=== PATIENT | male | born 1935 | race Caucasian/White ===

== ENCOUNTER 2016-05-31 08:46 | Day surgery (SDC) | payer MEDICARE, OTHER ==
[~2016-05-31 08:46] MED LIST: DIPRIVAN 200 MG/20 ML IV ONE; Ketamine HCl 50 MG/ML IV ONE
--- NOTE | 2016-05-31 09:20 | HP ---
PROCEDURE DATE: 05/31/16 HISTORY OF PRESENT ILLNESS: The patient is an 80 y/o with no prior colonoscopy. Family history negative for colon cancer. His father with myocardial infarction. He has lost some weight. He denies any visible bloody stools. He said he had some heme-occult positive stool apparently. He had been on Plavix. There was question if he had a stroke in the past. No abdominal pain. Some backaches. History of kidney stone in the past. Currently denies any abdominal pain. PAST MEDICAL HISTORY: Has had some heart disease, kidney stones, and hypertension. CURRENT MEDICATIONS: Includes Zetia, ciprofloxacin, tamsulosin, valsartan, and aspirin. ALLERGIES: NKDA. PAST SURGICAL HISTORY: Had 2 coronary stents. He had a pacemaker. Had kidney stone surgery in the past. FAMILY HISTORY: Negative with regards to this problem. SOCIAL HISTORY: No smoking or alcohol abuse. REVIEW OF SYSTEMS: 10 systems reviewed per admission assessment. No chest pain or palpitations. Other systems negative or noncontributory other than above and preadmission questionnaire. He did have history of urinary tract infection which is why he is on the ciprofloxacin. PHYSICAL EXAMINATION: GENERAL: No acute distress. HEENT: Sclerae nonicteric. NECK: No JVD. CHEST: Equal excursion. Nonlabored breathing. CVS: Regular rate and rhythm. ABDOMEN: Soft, nontender, nondistended. No peritoneal signs. EXTREMITIES: No significant edema. NEURO: A&O, moving extremities symmetrically. No gross motor deficits noted. IMPRESSION: 1. HEME-OCCULT POSITIVE. NO ABDOMINAL PAIN. NO VISIBLE BLOOD. FELT HE WOULD BENEFIT FROM UPPER AND LOWER ENDOSCOPY FOR FURTHER EVALUATION. Risks and benefits explained in detail, but not limited to, bleeding; infection; risk of bowel injury or perforation possibly requiring open procedure; small risk of missed or nondiagnosis or incomplete exam possibly requiring barium enema or other studies or procedures; general risks of anesthesia or sedation, but not limited to. He understands and agrees to the planned procedure. Will proceed with EGD/colonoscopy as an outpatient.
[2016-05-31] MEDS ORDERED: Lactated Ringers 1,000 ML IV ONE (09:23)
[2016-05-31] MEDS ORDERED: Lactated Ringers 1,000 ML IV SCH (09:30)
[2016-05-31 12:36] VITALS: PULSE 60
--- NOTE | 2016-05-31 12:37 | OP ---
SURGERY DATE: 05/31/16 SURGERY TIME: 1020 PREOPERATIVE DIAGNOSIS: 1. HISTORY OF HEME-OCCULT POSITIVE. RULE OUT UPPER OR LOWER GASTROINTESTINAL SOURCE. POSTOPERATIVE DIAGNOSIS: 1. EROSIVE GASTRITIS. 2. SMALL HAITAL HERNIA. 3. VERY TORTUOUS COLON. 4. DIVERTICULOSIS. 5. SMALL RAISED LESION VS EARLY POLYPS TRANSVERSE COLON, SIGMOID COLON, AND RECTOSIGMOID COLON. 6. SMALL INTERNAL/EXTERNAL HEMORRHOIDS. PROCEDURE: 1. EGD with cold biopsy of antrum to evaluation for Helicobacter pylori. 2. Colonoscopy to questionable ascending colon through the transverse colon and then question to distal ascending colon with hot biopsy small raised lesion vs early polyps transverse colon, sigmoid, and rectum. SURGEON: Dr. Ramsey Castellanos. ANESTHESIA: MAC. ESTIMATED BLOOD LOSS: Minimal. INDICATIONS: As noted above. Risks and benefits explained in detail, but not limited to. Consent was obtained. DESCRIPTION OF PROCEDURE AND FINDINGS: The patient was taken to the OR. MAC anesthesia was introduced. After official time-out, no disagreement in planned procedure. Bite block positioned. Video gastroscope easily passed down the esophagus through the patent pylorus to the junction of the 2nd and 3rd portion of the duodenum. On withdrawal of the scope, the duodenum and the duodenal bulb grossly unremarkable. He did have in the prepyloric area signs of erosive gastritis. This could have been the result of his heme-occult positive stool. There is nothing large enough to call an ulcer at this time, but he has had erosive gastritis. [place], on retroflex, he had small hiatal hernia, about a cm extra around the scope. The scope was straightened. There were no signs of any large polyps, masses, or obstructing lesions in the stomach. The scope pulled back. Gastroesophageal junction noted to be about 37-38 cm. Z line was crisp. The remainder of esophagus was grossly unremarkable. Scope was withdrawn. Patient tolerated this procedure well. Attention was then turned to the colonoscopy. Digital rectal exam did not reveal any rectal masses. Video colonoscope inserted and passed up through the very tortuous sigmoid and descending. With external pressure, was able to be passed what seems to be through what appeared to be the transverse colon. However, this looped all the way around towards the pelvis area. [place] it may have just reached the distal ascending colon, though the scope would not safely advance any further because of looping. It could not be reduced with multiple people with external pressure on the abdomen and positioning on his back. Therefore, it was not safe to try any further. Scope was slowly carefully withdrawn. In the transverse colon, small raised area vs early polyp or hyperplastic lesion removed with the brief bursts of cautery and the hot biopsy forceps. The scope then pulled back to the sigmoid colon were about 4 or 5 small raised lesions vs hyperplastic lesions vs early polyps were removed with hot biopsy forceps and brief bursts of cautery elevating it well away from the bowel wall. The scope pulled back to the rectosigmoid. Another very small early raised lesions was removed with hot biopsy forceps and brief bursts of cautery. Good hemostasis was noted. Otherwise, he was noted to have diverticulosis. He did have some poor prep in the left colon with some liquidy stool that did limit the exam. This was suction irrigated as well as possible. It did limit the exam. Otherwise, he had some small internal/external hemorrhoids. There were no signs of any large polyps, masses, or obstructing lesions, but given the very tortuous scope, it was unable to be passed safely all the way around to the visible cecum. Therefore, it was felt it would be safest to order an outpatient barium enema for further evaluation. The family was not available immediately finishing the case. Will see if the family is available to discuss the findings with. Otherwise, will see him back after we get the barium enema results.
[2016-05-31 12:38] VITALS: BP 155/90; O2SAT 96
== END 2016-05-31 12:30 | disposition home or self-care (01) ==
LOC: SDC 08:46
PROVIDERS: ATTEND Surgery
PROC: 0DB68ZX Excision of Stomach, Via Natural or Artificial Opening Endoscopic, Diagnostic (ICD-10-PCS; principal; 2016-05-31)
PROC: 0DBK8ZX Excision of Ascending Colon, Via Natural or Artificial Opening Endoscopic, Diagnostic (ICD-10-PCS; 2016-05-31)
PROC: 0DBP8ZX Excision of Rectum, Via Natural or Artificial Opening Endoscopic, Diagnostic (ICD-10-PCS; 2016-05-31)
PROC: 0DBN8ZX Excision of Sigmoid Colon, Via Natural or Artificial Opening Endoscopic, Diagnostic (ICD-10-PCS; 2016-05-31)
PROC: 0DBL8ZX Excision of Transverse Colon, Via Natural or Artificial Opening Endoscopic, Diagnostic (ICD-10-PCS; 2016-05-31)
DX: K29.00 Acute gastritis without bleeding (principal); K44.9 Diaphragmatic hernia without obstruction or gangrene; K57.92 Diverticulitis of intestine, part unspecified, without perforation or abscess without bleeding; K63.9 Disease of intestine, unspecified; K62.1 Rectal polyp; D12.2 Benign neoplasm of ascending colon; D12.3 Benign neoplasm of transverse colon; D12.5 Benign neoplasm of sigmoid colon; K64.4 Residual hemorrhoidal skin tags; K64.8 Other hemorrhoids; N39.0 Urinary tract infection, site not specified; Z80.0 Family history of malignant neoplasm of digestive organs; R19.5 Other fecal abnormalities; I10 Essential (primary) hypertension; Z87.442 Personal history of urinary calculi; I51.9 Heart disease, unspecified; Z79.899 Other long term (current) drug therapy; Z95.0 Presence of cardiac pacemaker
CPT/HCPCS: 00740; 00810; 36415; 88305; J2704

== ENCOUNTER 2016-06-01 16:42 | Inpatient (IN) | payer MEDICARE ==
[2016-06-01 17:15] LABS: BASOPHIL % 0.1 % (0.0-0.4); Eosinophil % 1.7 % (0.00-5.0); Granulocytes % 74.2 % (36.0-66.0); Lymphocytes % 15.2 % (24.0-44.0); Mean Cell Volume 86.4 fl (78-100); Mean Corpuscular Hemoglobin 29.1 pg (26-32); Mean Platelet Volume 11.1 fl (6-9.5); Monocytes % 8.8 % (0.0-12.0); Platelet Count 184 K/mm3 (150-450); Red Blood Count 4.91 M/mm3 (4.1-5.6); Red Cell Distribution Width 16.8 % (11.5-14.0); White Blood Count 8.2 K/mm3 (4.0-10.5)
[2016-06-01 17:33] LABS: INR 1.11 (0.8-3.0); PROTIME 12.4 SECONDS (8.83-12.87)
[2016-06-01 17:35] LABS: PTT 30.6 SECONDS (24.1-36.1)
--- NOTE | 2016-06-01 17:35 | ERPHSYRPT ---
- History of Present Illness Time Seen by Provider: 06/01/16 16:53 Source: patient, family () Patient Subjective Stated Complaint: states patient woke up at 10 today with garbled speech. denies any other deficits at this time. hx tia. denies any pain. had been off blood thinner for seven days due to colonscopy yesterday per dr. escobar. Triage Nursing Assessment: ambulated to room per self. no weakness in extremites noted. speech is garbled, unable to pronounce words. oriented to place and time and person. Physician History: CC: speech problems Hx: 80 y/o patient of Dr Connolly and Amy. He had colonscopy yesterday. He went home and was doing well. reports he went to bed at 10PM yesterday. He slept until 10AM today when she woke him up. He had trouble speaking when he awoke today at 10AM. No focal weakness. Ate and drank fine. Still trouble speaking so came to ER. He is supposed to be on blood thinners which were stopped due to procedure yesterday. No fall or injury. He has hx of heart disease. No RIOS. Not confused. Time of Onset/Last Time Seen Normal: last seen normal at 10 PM yesterday Severity: moderate Baseline/Normal Cognition: alert oriented x 3 Current Cognition: alert oriented x 3 Associated Symptoms: No loss of consciousness Allergies/Adverse Reactions: No Known Drug Allergies Allergy (Unverified 08/02/15 10:53) Home Medications: Aspirin 162.5 mg PO HS 08/02/15 [History] Clopidogrel Bisulfate 75 mg [PLAVIX 75 MG Tablet] 75 mg PO DAILY 08/02/15 [History] Ezetimibe 10 mg [Zetia 10 MG] 10 mg PO HS 08/02/15 [History] Valsartan/Hydrochlorothiazide [Valsartan-Hctz 160-12.5 mg Tab] 1 tablet PO DAILY 08/02/15 [History] Tamsulosin HCl 0.4 mg [Flomax 0.4 MG] 0.4 mg PO DAILY 05/31/16 [History] Hx Tetanus, Diphtheria Vaccination/Date Given: No Hx Influenza Vaccination/Date Given: Yes Hx Pneumococcal Vaccination/Date Given: Yes - Review of Systems Constitutional: No Fever, No Chills Eyes: No Symptoms Ears, Nose, & Throat: No Symptoms Respiratory: No Cough, No Dyspnea Cardiac: No Chest Pain, No Syncope Abdominal/Gastrointestinal: No Abdominal Pain, No Nausea, No Vomiting Musculoskeletal: No Back Pain, No Neck Pain, No Fall, No Injury Skin: No Rash Neurological: Speech Changes, No Dizziness, No Focal Weakness, No Headache, No Parasthesia, No Seizure All Other Systems: Reviewed and Negative - Past Medical History Pertinent Past Medical History: Yes Neurological History: TIA ENT History: No Pertinent History Cardiac History: Arrhythmia, Coronary Artery Disease, High Cholesterol, Hypertension Respiratory History: No Pertinent History Endocrine Medical History: No Pertinent History Musculoskeletal History: No Pertinent History GI Medical History: Hernia, Other History: Other Psycho-Social History: No Pertinent History Male Reproductive Disorders: Prostate Problems Other Medical History: blood in stool. hx kidney stone and uti - Past Surgical History Past Surgical History: Yes Neuro Surgical History: No Pertinent History Cardiac: Cardiac Stent, Pacemaker Respiratory: No Pertinent History Gastrointestinal: No Pertinent History Genitourinary: Other Musculoskeletal: No Pertinent History Male Surgical History: No Pertinent History Other Surgical History: KIDNEY STONES - Social History Smoking Status: Never smoker Exposure to second hand smoke: No Drug Use: none Patient Lives Alone: No - Nursing Vital Signs Nursing Vital Signs: Initial Vital Signs Temperature 98.6 F Temperature Source Oral Pulse Rate 68 Respiratory Rate 16 Blood Pressure [Left Arm] 160/72 Pain Intensity 0 - [place] Coma Scale Best Eye Response ([place]): (4) open spontaneously Best Verbal Response ([place]): (5) oriented Best Motor Response ([place]): (6) obeys commands [place] Total: 15 - Physical Exam General Appearance: alert Eye Exam: bilateral eye: PERRL, EOMI Ears, Nose, Throat Exam: moist mucous membranes Neck Exam: normal inspection, non-tender, supple Respiratory: normal breath sounds, lungs clear Cardiovascular: regular rate/rhythm Gastrointestinal: soft, No tenderness, No distention Back Exam: normal inspection Extremity Exam: normal inspection, normal range of motion Mental Status: alert, oriented x 3, 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 He understands speech and follows commands. - Course Nursing assessment & vital signs reviewed: Yes EKG Interpreted by Me: RATE (50 pacemaker) - Radiology Exams cxr X-ray Interpretation: Reviewed by me, Negative - CT Exams head CT Interpretation: Tele-radiologist Report (acute frontal nonhemorrhaogic stroke ) Ordered Tests: Active Orders 24 hr Category Date Time Status Service Order Taker STAT Care 06/01/16 17:01 Active Clean Catch Urine Specimen STAT Care 06/01/16 17:01 Active EKG-ER Only STAT Care 06/01/16 17:01 Active IV Insertion STAT Care 06/01/16 17:01 Active NPO (ED) STAT Care 06/01/16 17:01 Active Pulse Oximetry (ED) STAT Care 06/01/16 17:01 Active Consult Neurology ROUTINE Cons 06/01/16 17:54 Active CHEST 1 VIEW (PORTABLE) Stat Exams 06/01/16 17:02 Taken HEAD WITHOUT CONTRAST [CT] Stat Exams 06/01/16 17:02 Taken CBC W DIFF Stat Lab 06/01/16 17:10 Completed CMP Stat Lab 06/01/16 17:10 Completed PROTIME WITH INR Stat Lab 06/01/16 17:10 Completed PTT Stat Lab 06/01/16 17:10 Completed UA Stat Lab 06/01/16 18:00 Received Lab/Rad Data: Laboratory Result Diagrams 06/01/16 17:10 06/01/16 17:10 Laboratory Results 06/01/16 06/01/16 06/01/16 Range/Units 17:10 17:10 17:10 WBC 8.2 (4.0-10.5) K/mm3 RBC 4.91 (4.1-5.6) M/mm3 Hgb 14.3 (12.5-18.0) gm/dl Hct 42.4 (42-50) % MCV 86.4 (78-100) fl MCH 29.1 (26-32) pg MCHC 33.7 (32-36) g/dl RDW 16.8 H (11.5-14.0) % Plt Count 184 (150-450) K/mm3 MPV 11.1 H (6-9.5) fl Gran % 74.2 H (36.0-66.0) % Lymphocytes % 15.2 L (24.0-44.0) % Monocytes % 8.8 (0.0-12.0) % Eosinophils % 1.7 (0.00-5.0) % Basophils % 0.1 (0.0-0.4) % Basophils # 0.01 (0-0.4) INR 1.11 (0.8-3.0) PTT 30.6 (24.1-36.1) SECONDS Sodium 137 (136-145) mEq/L Potassium 3.6 (3.5-5.1) mEq/L Chloride 101 (98-107) mEq/L Carbon Dioxide 27.1 (21-32) mEq/L Anion Gap 12.4 (5-15) MEQ/L BUN 21 H (9-20) mg/dL Creatinine 1.32 H (0.55-1.30) mg/dl Estimated GFR 55 ML/MIN Glucose 107 (70-110) MG/DL Calcium 8.6 (8.5-10.1) mg/dL Total Bilirubin 0.3 (0.2-1.0) mg/dL AST 24 (15-37) U/L ALT 23 (12-78) U/L Alkaline Phosphatase 71 (46-116) U/L Serum Total Protein 7.2 (6.4-8.2) gm/dL Albumin 3.7 (3.4-5.0) g/dL - Progress Progress Note: 06/01/16 17:55 Pt has acute appearing nonhemorrhagic stroke on CT. He is not a TPA candidate due to recent procedure and time greater than [address] Reyes. Pt had hot biopsies of colon polyps. He advised best to avoid anticoagulation for 3 -5 days in order to prevent colon bleed. Can start blood thinners sooner if able to reverse and if benefits outweigh risks. Will get tele neurology consult for advice regarding blood thinners. 06/01/16 18:[address] Cuellar for [facility] and will place in ICU observation. Tele stroke neuro consult pending to decide about blood thinners. Explained plan to pt and . Discussed with : Alisa Will see patient in: hospital (observation) Counseled pt/family regarding: lab results, diagnosis, need for follow-up, rad results - Departure Time of Disposition: 18:09 Departure Disposition: Observation Clinical Impression: acute right frontal stroke nonhemorrhagi Condition: Fair Critical Care Time: No Referrals: IRINA CONNOLLY [Primary Care Provider] -
[2016-06-01 17:56] LABS: ALBUMIN 3.7 g/dL (3.4-5.0); ANION GAP 12.4 MEQ/L (5-15); BILIRUBIN,TOTAL 0.3 mg/dL (0.2-1.0); Carbon Dioxide 27.1 mEq/L (21-32); Potassium 3.6 mEq/L (3.5-5.1); Total Protein 7.2 gm/dL (6.4-8.2)
[2016-06-01 18:38] LABS: COMPLETE URINE MICROSCOPIC? NO; Collection Type CLEAN CATCH
--- NOTE | 2016-06-02 08:42 | XRAY ---
Indication: Knee fascia. Possible stroke. Multiple contiguous axial images obtained through the head without contrast. Comparison: November 13, 2014. Stable age-appropriate global atrophy, minimal periventricular degenerative micro-ischemia bilaterally, and remote right basal ganglia lacunar infarct. New moderate size focus of right anterior parietal subcortical hypoattenuation favoring acute ischemia. Additional new smaller focus of acute ischemia in the inferior right frontal lobe. No acute intracranial hemorrhage, hydrocephalus, or mass effect. Bony calvarium intact. Visualized paranasal sinuses and mastoid air cells are pneumatized and clear. Impression: 1. New right anterior parietal and right frontal acute ischemia without acute hemorrhage or mass effect. 2. Stable atrophy, degenerative micro-ischemia, and remote right basal ganglia lacunar infarct. Comment: Preliminary interpretation was made by [facility]. No critical discrepancy. CT DI 67.80
--- NOTE | 2016-06-02 08:44 | XRAY ---
Indication: Aphagia. Possible stroke. Comparison: November 13, 2014. Portable chest remains clear with left-sided dual-lead pacemaker. Heart is not enlarged. Bony thorax intact. No new/acute findings. Impression: Stable nonacute chest.
[2016-06-02] MEDS ORDERED: ENOXAPARIN SODIUM SQ SCH ×2 (12:00→22:00)
--- NOTE | 2016-06-02 12:00 | PCM.HP ---
History of Present Illness - Chief Complaint Chief Complaint: CVA Date: 06/02/16 History of Present Illness: is a 80 year old male. who had egd and colonoscopy with biopsy on 05/31/16 for melena. he was found to have erosive gastritis and polyps. He was holding his aspirin and plavix for 7 days prior and after and woke up yesterday am with speech difficulties. He had previous stroke. he follows with Dr. Armas cardiology. He had no other focal deficits. - Review of Systems Constitutional: No Fever, No Chills Eyes: No Symptoms Ears, Nose, & Throat: No Symptoms Respiratory: No Cough, No Short Of Breath Cardiac: No Chest Pain, No Edema, No Syncope Abdominal/Gastrointestinal: No Abdominal Pain, No Nausea, No Vomiting, No Diarrhea Genitourinary Symptoms: No Dysuria Musculoskeletal: No Back Pain, No Neck Pain Skin: No Rash Neurological: No Dizziness, No Focal Weakness, No Sensory Changes Psychological: No Symptoms Endocrine: No Symptoms Hematologic/Lymphatic: No Symptoms Immunological/Allergic: No Symptoms Medications & Allergies Home Medications: Home Medication List Aspirin 162.5 mg PO HS 08/02/15 [History Confirmed 06/01/16] Clopidogrel Bisulfate 75 mg [PLAVIX 75 MG Tablet] 75 mg PO DAILY 08/02/15 [History Confirmed 06/01/16] Ezetimibe 10 mg [Zetia 10 MG] 10 mg PO HS 08/02/15 [History Confirmed ] Valsartan/Hydrochlorothiazide [Valsartan-Hctz 160-12.5 mg Tab] 1 tablet PO DAILY 08/02/15 [History Confirmed 06/01/16] Tamsulosin HCl 0.4 mg [Flomax 0.4 MG] 0.4 mg PO DAILY 05/31/16 [History Confirmed 06/01/16] Allergies/Adverse Reactions: Allergies Allergy/AdvReac Type Severity Reaction Status Date / Time No Known Drug Allergies Allergy Unverified 08/02/15 10:53 - Past Medical History Past Medical History: Yes Neurological History: Stroke, TIA ENT History: No Pertinent History Cardiac History: Arrhythmia, Coronary Artery Disease, High Cholesterol, Hypertension Respiratory History: No Pertinent History Endocrine Medical History: No Pertinent History Musculoskelatal History: No Pertinent History GI Medical History: Hernia, Other History: Other Pyscho-Social History: No Pertinent History Male Reproductive Disorders: Prostate Problems Comment: blood in stool. hx kidney stone and uti - Past Surgical History Past Surgical History: Yes Neuro Surgical History: No Pertinent History Cardiac History: Cardiac Catheterization, Cardiac Stent, Pacemaker Respiratory Surgery: No Pertinent History GI Surgical History: No Pertinent History Genitourinary Surgical Hx: Other Musculskeletal Surgical Hx: No Pertinent History Male Surgical History: No Pertinent History Other Surgical History: KIDNEY STONES - Social History Smoking Status: Never smoker Exposure to second hand smoke: No Alcohol: None Drug Use: none - Physical Exam Vital Signs: Vital Signs - 24 hr Temp Pulse Resp BP Pulse Ox 06/02/16 08:00 98.2 F 62 16 129/72 93 L 06/02/16 04:00 98.8 F 71 14 142/80 94 L 06/02/16 00:01 61 06/02/16 00:00 60 26 H 132/72 92 L 06/01/16 22:35 24 06/01/16 20:08 99.4 F 61 24 147/78 97 06/01/16 18:25 98.8 F 64 16 173/73 95 06/01/16 18:10 95 06/01/16 17:28 68 16 160/72 95 06/01/16 17:24 96 06/01/16 16:56 98.6 F 66 16 189/94 98 General Appearance: no apparent distress Neurologic Exam: alert, oriented x 3, cooperative, slurred speech, dysarthria Eye Exam: No scleral icterus, No pale conjunctivae Ears, Nose, Throat Exam: moist mucous membranes Neck Exam: non-tender, supple Respiratory Exam: lungs clear, No crackles/rales, No rhonchi, No wheezing Cardiovascular Exam: normal heart sounds, murmur Gastrointestinal/Abdomen Exam: soft, normal bowel sounds, No tenderness, No distention Back Exam: normal inspection Extremity Exam: normal inspection, No calf tenderness, No pedal edema Skin Exam: warm, dry, No rash Results - Radiology Impressions Radiology Exams & Impressions: Radiology Procedures Category Date Time Status CAROTID BILATERAL [US] Routine Exams 06/02/16 19:58 Ordered CTA HEAD W AND/OR WO CONTRAST [CT] Routine Exams 06/02/16 Ordered Assessment/Plan (1) Stroke Current Visit: Yes Status: Acute Qualifiers: Precerebral and cerebral artery: anterior cerebral artery Laterality of affected vessel: right Assessment & Plan: acute with aphasia. Patient was off antiplatelets due to procedure and erosive gastritis with biopsies PT/OT/ST swallow eval echo carotid ultrasound CTA tele neuro was consulted start statin there was concern with his biopsy at starting the aspirin and plavix without ability to reverse. with his afib and stroke will start therapeutic lovenox today at 1mg/kg/day with his gfr of about 33 Code(s): I63.9 - CEREBRAL INFARCTION, UNSPECIFIED (2) Presence of stent in coronary artery in patient with coronary artery disease Current Visit: Yes Status: Chronic Code(s): I25.10 - ATHSCL HEART DISEASE OF [place] CORONARY ARTERY W/O ANG PCTRS; Z95.5 - PRESENCE OF CORONARY ANGIOPLASTY IMPLANT AND GRAFT (3) Gastritis Current Visit: Yes Status: Acute Assessment & Plan: start the protonix Code(s): K29.70 - GASTRITIS, UNSPECIFIED, WITHOUT BLEEDING (4) Essential (primary) hypertension Current Visit: Yes Status: Acute Assessment & Plan: hold for permissive htn after the acute stroke Code(s): I10 - ESSENTIAL (PRIMARY) HYPERTENSION
[2016-06-02] MEDS: Protonix 40MG Tablet PO SCH ×2 (12:47→15:03)
[2016-06-02] MEDS: ENOXAPARIN SODIUM SQ SCH ×2 (12:59→13:02)
--- NOTE | 2016-06-02 16:40 | XRAY ---
Indication: Stroke. Two-dimensional sonogram and color Doppler imaging of the carotid arteries of the neck performed. Comparison: None Examination of the right carotid circulation demonstrates mild/moderate calcified plaquing at the level of the bulb extending into the origin of the internal and external carotid arteries. PSV of the CCA is 87 cm/s. PSV of the ICA is 169 cm/s. ICA/CCA ratio is 1.9. Normal antegrade vertebral artery flow. Examination of the left carotid circulation demonstrates mild soft and calcified plaquing at the level of the bulb extending into the origin of the internal carotid artery. PSV of the CCA is 101 cm/s. PSV of the ICA is 69 cm/s. ICA/CCA ratio 0.7. Normal antegrade vertebral artery flow. Impression: Arteriosclerotic plaquing in both carotid circulation, right greater than left. Velocity measurements and ratios suggest 50-69% stenosis on the right. No left carotid hemodynamically significant flow limiting stenosis. Normal bilateral antegrade vertebral artery flow.
--- NOTE | 2016-06-02 16:55 | XRAY ---
Indication: CVA. Conventional contrast enhanced CTA carotid arteries performed using 125 cc Isovue 370 contrast. Two-dimensional sagittal and coronal reformatted images obtained. Additional 3-dimensional reformatted images obtained using a separate workstation. Comparison: None Visualized aortic arch demonstrates minimal calcifications without aneurysm/dissection. Normal branching right brachiocephalic, left common carotid, and left subclavian arteries with very minimal calcifications at the origin. Examination of the right carotid circulation demonstrates common carotid artery normal in course and caliber without stenosis/obstruction. At the level of the bulb, there is moderate calcified plaquing slightly extending to the origin of the internal carotid artery producing 60-70% stenosis. No poststenotic dilatation. Very minimal eccentric calcified plaquing in the more distal extracranial internal carotid artery. Examination of the left carotid circulation demonstrates widely patent common carotid artery. At the level above, there is minimal calcified plaquing slightly extending to the origin of internal carotid artery producing less than 20-30% stenosis. Very minimal eccentric calcific plaquing in the more distal extracranial internal carotid artery. Vertebral arteries demonstrates left artery larger in size. No critical stenosis, structure, or vascular malformation. Incidentally left arm contrast injection demonstrates preferential opacification of the left jugular and multiple paraspinal collateral vessels. Left brachiocephalic vein appears attenuated without filling defect. Visualized noncontrasted soft tissues demonstrates mild biapical pleural thickening. Cervical spine intact with mild lordotic straightening and multilevel C3-C7 degenerative disc disease. Impression: 1. Right carotid bulb calcified plaquing extending into the origin of internal carotid artery producing 60-70% stenosis. 2. Left carotid bulb lesser degree calcified plaquing resulting in less than 20-30% stenosis. 3. Bilaterally patent vertebral arteries with the left vertebral artery dominant. 4. Left arm contrast injection demonstrates left brachiocephalic vein attenuation with preferential opacification of the left jugular and paraspinal collaterals of uncertain clinical significance. CTDI 55.02
--- NOTE | 2016-06-02 17:00 | XRAY ---
Indication: CVA. Conventional contrast enhanced CTA [place] was performed using 125 cc Isovue 370 contrast. Two-dimensional sagittal and coronal reformatted images obtained. Additional 3-dimensional reformatted images obtained using a separate workstation. Comparison: None Distal internal carotid arteries demonstrates mild calcifications in the parasellar segments, right greater than left. No critical stenosis/obstruction. Normal carotid terminus with normal branching A1 and M1 segments bilaterally. More distal anterior cerebral, middle cerebral, anterior communicating, and posterior communicating arteries demonstrates normal CTA appearance. Posterior circulation demonstrates distal left vertebral artery dominant in size. Normal course and caliber of the basilar artery. Normal basilar tip with normal branching posterior cerebral and superior cerebellar arteries bilaterally. Venous drainage including superior/inferior sagittal and transverse sinuses are unremarkable. Impression: Negative CTA [place]. CTDI 55.02
[2016-06-02] MEDS ORDERED: ZOCOR 20MG PO SCH (22:00)
[2016-06-02] MEDS ORDERED: Zetia 10 MG PO SCH (22:00)
[2016-06-03 08:56] VITALS: PULSE 67
--- NOTE | 2016-06-03 09:54 | PCM.DCORD ---
- Discharge Discharge Date: 06/03/16 Disposition: Home, Self-Care Condition: Fair Prescriptions: New Atorvastatin Calcium [Lipitor] 80 mg PO DAILY #30 tablet PANTOPRAZOLE 40 mg Tablet [Protonix 40MG Tablet] 40 mg PO DAILY #30 tab Continue Valsartan/Hydrochlorothiazide [Valsartan-Hctz 160-12.5 mg Tab] 1 tablet PO DAILY Clopidogrel Bisulfate 75 mg [PLAVIX 75 MG Tablet] 75 mg PO DAILY Ezetimibe 10 mg [Zetia 10 MG] 10 mg PO HS Aspirin 162.5 mg PO HS Tamsulosin HCl 0.4 mg [Flomax 0.4 MG] 0.4 mg PO DAILY Follow up with: IRINA CONNOLLY [Primary Care Provider] - MINESH DELUCA [NON-STAFF PHY W/O PRIVILEGES] - 1 Week LIUDMILA FERGUSON [CONSULTING PHYSICIAN] - 1 Week
[2016-06-03] MEDS: Protonix 40MG Tablet PO SCH (09:59)
[2016-06-03] MEDS ORDERED: PLAVIX 75 MG Tablet PO SCH (10:00)
[2016-06-03] MEDS ORDERED: ECOTRIN 81 MG PO SCH (10:00)
[2016-06-03] MEDS ORDERED: Flomax 0.4 MG PO SCH (10:00)
--- NOTE | 2016-06-03 10:01 | PCM.DS ---
Discharge Summary Date of Admission: 06/01/16 19:57 Date of Discharge: 06/03/16 Admitting Physician: SANJAY GROVES Primary Care Provider: IRINA CONNOLLY Allergies Allergies No Known Drug Allergies Allergy (Unverified 08/02/15 10:53) Hospital Summary - Hospital Course Hospital Course: Mr. Simpson had been off his aspirin and plavix for about 10 days for a colonoscopy and egd that was done on 05/31/16 He awoke on 06/01/2016 with garbled speech and no other deficits. He presented to the ED and was admitted for stroke in the right frontal seen on CT noncontrast with no hemorrhage seen. Tele neurology was consulted the recommended antiplatelets restarted and no lipitor and no tpa. He was placed on therapeutic lovenox on first arrival. He had CTA showing 60 to 70 % stenosis in the right carotid. He had Speech therapy with normal swallow study. He was seen by PT with no deficits except the expressive aphasia. HE did well. He has an atrial paced rhythm and follows with Dr. Armas. He was started on statin therapy here. We are making arrangements for follow up with vascular surgery for his carotid artery stenosis on the right as the likely etiology of the ischemic right frontal stroke with expressive aphasia and will do medical therapy with atorvastatin 80 mg and aspirin and plavix in the interim. He was also started on protonix due to his EGD showing erosive gastritis as likely cause of his previous heme positive stools that lead to the EGD and colonoscopy. He will continue to work with speech therapy. WE will have him follow up with Dr. Armas as well to discuss his anticoagulation as well with his atrial paced rhythm and pacemaker interrogation if he should need any change in his anticoagulation based on the interpretation. The Echo results are pending at time of discharge. - Vitals & Intake/Output Vital Signs: Vital Signs Temperature 97.5 F 06/03/16 08:00 Pulse Rate 67 06/03/16 08:00 Respiratory Rate 18 06/03/16 08:00 Blood Pressure 185/89 06/03/16 08:00 O2 Sat by Pulse Oximetry 95 06/03/16 08:00 Intake & Output: Intake & Output 05/31/16 06/01/16 06/02/16 06/03/16 11:59 11:59 11:59 11:59 Intake Total 0 650 Output Total 1100 950 Balance -1100 -300 Weight 78.335 kg - Lab Result Diagrams: 06/01/16 17:10 06/01/16 17:10 - Radiology Exams Ordered Rad Exams-Entire Visit: Radiology Procedures Category Date Time Status CAROTID BILATERAL [US] Routine Exams 06/02/16 19:[address] ANGIOGRAPHY NECK [CT] Routine Exams 06/02/16 Completed CTA HEAD W AND/OR WO CONTRAST [CT] Routine Exams 06/02/16 Completed - Procedures and Test Procedures and Tests throughout Hospitalization: Therapy Orders & Screens 06/01/16 19:58 PT Eval & Treat (MD Order) ROUTINE Evaluate: Yes Treat: Yes Reason for Eval:: stroke OT Eval and Treat (MD Order) ROUTINE Comment: Consulting Provider: Physician Instructions: Reason For Exam: Diagnosis: stroke ST Eval & Treat (MD Order) ROUTINE Comment: Physician Instructions: Reason For Exam: Evaluate: Yes Treat: Yes Reason for Eval: stroke swallow evaluation Diagnosis: stroke Discharge Exam General Appearance: no apparent distress Neurologic Exam: alert, oriented x 3, cooperative, nml cerebellar function, aphasia (expressive), No motor deficits, No sensory deficit, No confusion, No motor weakness, No abnormal city solicitor II-XII, No EOM palsy Skin Exam: warm, dry Eye Exam: No eyes nml inspection, No scleral icterus Neck Exam: non-tender, supple Respiratory Exam: normal breath sounds, lungs clear Cardiovascular Exam: regular rate/rhythm, normal heart sounds, No edema Gastrointestinal/Abdomen Exam: soft, normal bowel sounds, No tenderness Extremity Exam: normal inspection, No calf tenderness, No pedal edema Final Diagnosis/Problem List - Final Discharge Diagnosis/Problem (1) Stroke Current Visit: Yes Status: Acute Assessment & Plan: ischemic right frontal with however his only deficit is expressive aphasia suspect right brain dominent suspected etiology right carotid stenosis 60 to 70 % (2) Presence of stent in coronary artery in patient with coronary artery disease Current Visit: Yes Status: Chronic (3) Gastritis Current Visit: Yes Status: Acute (4) Essential (primary) hypertension Current Visit: Yes Status: Acute (5) Carotid artery stenosis with cerebral infarction Current Visit: Yes Status: Acute (6) Expressive aphasia Current Visit: Yes Status: Acute - Discharge Discharge Date: 06/03/16 Disposition: Home, Self-Care Condition: Fair Prescriptions: New Atorvastatin Calcium [Lipitor] 80 mg PO DAILY #30 tablet PANTOPRAZOLE 40 mg Tablet [Protonix 40MG Tablet] 40 mg PO DAILY #30 tab Continue Valsartan/Hydrochlorothiazide [Valsartan-Hctz 160-12.5 mg Tab] 1 tablet PO DAILY Clopidogrel Bisulfate 75 mg [PLAVIX 75 MG Tablet] 75 mg PO DAILY Ezetimibe 10 mg [Zetia 10 MG] 10 mg PO HS Aspirin 162.5 mg PO HS Tamsulosin HCl 0.4 mg [Flomax 0.4 MG] 0.4 mg PO DAILY Follow up with: LIUDMILA ARMAS [CONSULTING PHYSICIAN] - 1 Week IRINA CONNOLLY [Primary Care Provider] - MINESH DELUCA [NON-STAFF PHY W/O PRIVILEGES] - 1 Week
[2016-06-03 11:06] VITALS: BP 131/67; O2SAT 94
[2016-06-03] MEDS ORDERED: ENOXAPARIN SODIUM SQ SCH (22:00)
--- NOTE | 2016-06-04 15:04 | ECHO ---
DATE OF PROCEDURE: 06/02/2016 CLINICAL INFORMATION: Stroke. The M-mode 2D, and Doppler echocardiogram including color flow Doppler shows aortic valvular sclerosis without evidence of any significant stenosis. There is mild tricuspid regurgitation with a right ventricular systolic pressure calculated to be 33 mm of [place]. The left ventricle is normal in size with a dimension of 4.9 cm. There is mild concentric left ventricular hypertrophy with a septal thickness of 1.3 cm. The left ventricular posterior wall thickness is 1.2 cm. There is low normal contractility of the left ventricle with the ejection fraction between 50 and 55%. There is no apical thrombus present. The mitral valve E to A velocity ratio is decreased at 0.8 consistent with impaired left ventricular relaxation. The right ventricle is not well visualized. The left atrium is normal in size with a dimension of 2.9 cm. The interatrial septum is intact. The right atrium is normal in size. There is mild mitral regurgitation associated with mitral apparatus calcification. The pulmonic valve is not well visualized. The aortic root is borderline dilated with a dimension of 3.8 cm. There is no pericardial effusion. IMPRESSION: 1) LOW NORMAL CONTRACTILITY OF THE LEFT VENTRICLE. 2) NO EVIDENCE OF APICAL THROMBUS. 3) MILD CONCENTRIC LEFT VENTRICULAR HYPERTROPHY. 4) MILD TRICUSPID REGURGITATION WITH MILD PULMONARY HYPERTENSION. 5) MILD AORTIC ROOT DILATATION. 6) AORTIC VALVULAR SCLEROSIS WITHOUT EVIDENCE OF STENOSIS. 7) MILD MITRAL REGURGITATION.
== END 2016-06-03 13:35 | disposition home or self-care (01) | DRG 64 ==
LOC: ED 16:42 → ICU 19:57 → OBSVTOIN 19:57 → INTOOBSV 06-02 14:46 → MED SURG 06-02 14:46
PROVIDERS: ADMIT Family Medicine; ATTEND Family Medicine
DX: I63.9 Cerebral infarction, unspecified (principal); I63.239 Cerebral infarction due to unspecified occlusion or stenosis of unspecified carotid artery; I25.10 Atherosclerotic heart disease of native coronary artery without angina pectoris; Z95.5 Presence of coronary angioplasty implant and graft; K29.70 Gastritis, unspecified, without bleeding; I10 Essential (primary) hypertension; R47.01 Aphasia; Z86.73 Personal history of transient ischemic attack (TIA), and cerebral infarction without residual deficits; Z87.442 Personal history of urinary calculi; Z95.0 Presence of cardiac pacemaker
CPT/HCPCS: 36000; 36415; 70450; 70496; 70498; 71010; 80053; 81002; 85025; 85610; 85730; 93005; 93041; 93306; 93880; 99284; 99285; G0378; J1650

== ENCOUNTER 2019-01-02 04:09 | Emergency (ER) | payer MEDICARE ==
[2019-01-02] MEDS ORDERED: XYLOCAINE 1% HCL 20 ML MDV IJ ONE ×3 (04:23→05:01)
--- NOTE | 2019-01-02 04:23 | ERPHSYRPT ---
- History of Present Illness Time Seen by Provider: 01/02/19 04:19 Source: patient, EMS Exam Limitations: no limitations Physician History: Fell at long-term, hit right ear to trash can, has big laceration extending from tragus to outer surface of right ear lobule Occurred: just prior to arrival Reason for Fall: lost balance Injuries/Pain Location: head Loss of Consciousness: no loss of consciousness Quality: burning Severity of Pain-Max: moderate Severity of Pain-Current: moderate Modifying Factors: Improves With: nothing Associated Symptoms (Fall): No abdominal pain, No back pain, No confusion, No chest pain, No extremity injury, No headache, No lightheadedness, No muscle spasms, No nausea, No neck pain, No ringing in ears Allergies/Adverse Reactions: No Known Drug Allergies Allergy (Unverified 08/02/15 10:53) Home Medications: Aspirin 325 mg PO HS 08/02/15 [History] Acetaminophen [Tylenol] 650 mg PO Q4H PRN PRN 01/02/19 [History] Atorvastatin Calcium [Lipitor] 40 mg PO DAILY 01/02/19 [History] Carvedilol 3.125 mg [Coreg 3.125 MG] 1 tab PO BID 01/02/19 [History] Pantoprazole Sodium [Protonix] 20 mg PO DAILY 01/02/19 [History] Tamsulosin HCl 1 cap PO DAILY 01/02/19 [History] Hx Tetanus, Diphtheria Vaccination/Date Given: No Hx Influenza Vaccination/Date Given: Yes Hx Pneumococcal Vaccination/Date Given: Yes - Review of Systems Constitutional: No Fever, No Chills Eyes: No Symptoms Ears, Nose, & Throat: No Symptoms, Other (Laceration tragus to outer surface of right ear lobule 6 cms, bleeding +) Respiratory: No Cough, No Dyspnea Cardiac: No Chest Pain, No Edema, No Syncope Abdominal/Gastrointestinal: No Abdominal Pain, No Nausea, No Vomiting, No Diarrhea Genitourinary Symptoms: No Dysuria Musculoskeletal: No Back Pain, No Neck Pain Skin: No Rash Neurological: No Dizziness, No Focal Weakness, No Sensory Changes Psychological: No Symptoms Endocrine: No Symptoms All Other Systems: Reviewed and Negative - Past Medical History Pertinent Past Medical History: Yes Neurological History: Stroke, TIA ENT History: No Pertinent History Cardiac History: Arrhythmia, Coronary Artery Disease, High Cholesterol, Hypertension Respiratory History: No Pertinent History Endocrine Medical History: No Pertinent History Musculoskeletal History: No Pertinent History GI Medical History: Hernia, Other History: Other Psycho-Social History: No Pertinent History Male Reproductive Disorders: Prostate Problems Other Medical History: blood in stool. hx kidney stone and uti - Past Surgical History Past Surgical History: Yes Neuro Surgical History: No Pertinent History Cardiac: Cardiac Catheterization, Cardiac Stent, Pacemaker Respiratory: No Pertinent History Gastrointestinal: No Pertinent History Genitourinary: Other Musculoskeletal: No Pertinent History Male Surgical History: No Pertinent History Other Surgical History: KIDNEY STONES - Social History Smoking Status: Never smoker Exposure to second hand smoke: No Drug Use: none Patient Lives Alone: No - Nursing Vital Signs Nursing Vital Signs: Initial Vital Signs Temperature 97.5 F 01/02/19 04:12 Pulse Rate 66 01/02/19 04:12 Respiratory Rate 20 01/02/19 04:12 Blood Pressure 202/91 01/02/19 04:12 O2 Sat by Pulse Oximetry 98 01/02/19 04:12 Pain Scale Pain Intensity 2 - [place] Coma Score Best Eye Response ([place]): (4) open spontaneously Best Verbal Response ([place]): (5) oriented Best Motor Response ([place]): (6) obeys commands [place] Total: 15 - Physical Exam General Appearance: no apparent distress, alert Head Injury: no evidence of injury Eye Exam: PERRL/EOMI ENT Exam: airway nml, other (Laceration tragus to outer surface of right ear lobule 6 cms, bleeding +) Neck Exam: normal inspection, No tenderness Respiratory/Chest Exam: normal breath sounds, No chest tenderness, No respiratory distress Cardiovascular Exam: normal heart sounds, regular rate/rhythm Gastrointestinal Exam: soft, No tenderness, No distention, No guarding, No ecchymosis Back Exam: normal inspection, No vertebral tenderness Extremity Exam: normal inspection, normal range of motion, pelvis stable, No deformities Neurologic Exam: alert, oriented x 3, cooperative, sensation nml, No motor deficits Skin Exam: normal color, warm, dry, laceration, other (Laceration tragus to outer surface of right ear lobule 6 cms, bleeding +) SpO2: 98 Procedures - Laceration/Wound Repair Left Ear Wound Length (cm): 6 Wound's Depth, Shape: irregular Wound Explored: clean Irrigated: No Hibiclens Prep: Yes Anesthesia: local (Auricular block), 1% Lidocaine Volume Anesthetic (ccs): 30 Wound Repaired With: sutures Suture Size/Type: 4-0, ethilon Number of Sutures: 9 Layer Closure?: No Splint Applied?: No Sling Applied?: No Progress: 01/02/19 05:10 pt tolerated well - Course Nursing assessment & vital signs reviewed: Yes Ordered Tests: Medication Summary Discontinued Medications Generic Name Dose Route Start Last Admin Trade Name Chey PRN Reason Stop Dose Admin Lidocaine HCl 20 ml 01/02/19 04:23 01/02/19 04:40 Xylocaine 1% Hcl 20 Ml Mdv IJ 01/02/19 04:24 20 ml STAT ONE Administration Lidocaine HCl Confirm 01/02/19 04:24 Xylocaine 1% Hcl 20 Ml Mdv Administered 01/02/19 04:25 Dose 20 ml .ROUTE .STK-MED ONE Lidocaine HCl Confirm 01/02/19 04:44 Xylocaine 1% Hcl 20 Ml Mdv Administered 01/02/19 04:45 Dose 10 ml .ROUTE .STK-MED ONE Lidocaine HCl 10 ml 01/02/19 04:46 01/02/19 04:48 Xylocaine 1% Hcl 20 Ml Mdv IJ 01/02/19 04:47 10 ml STAT ONE Administration Lidocaine HCl 10 ml 01/02/19 05:01 01/02/19 05:10 Xylocaine 1% Hcl 20 Ml Mdv IJ 01/02/19 05:02 Not Given STAT ONE - Progress Progress: improved Counseled pt/family regarding: diagnosis, need for follow-up - Departure Departure Disposition: Home Clinical Impression: Laceration of ear Qualifiers: Encounter type: initial encounter Laterality: right Qualified Code(s): S01.311A - Laceration without foreign body of right ear, initial encounter Condition: Good Critical Care Time: No Referrals: OZZY BRUMFIELD [Primary Care Provider] - Instructions: Laceration Repair With Stitches (DC), Wound Care (DC)
[2019-01-02] MEDS ORDERED: XYLOCAINE 1% HCL 20 ML MDV ONE ×2 (04:24→04:44)
[2019-01-02 08:03] VITALS: BP 175/82
[2019-01-02 09:02] VITALS: PULSE 78; O2SAT 96
== END 2019-01-02 08:59 ==
LOC: ED 04:09
DX: S01.311A Laceration without foreign body of right ear, initial encounter (principal); W01.198A Fall on same level from slipping, tripping and stumbling with subsequent striking against other object, initial encounter; Y92.129 Unspecified place in nursing home as the place of occurrence of the external cause
CPT/HCPCS: 12014; 99284

== ENCOUNTER 2019-01-30 12:07 | Emergency (ER) | payer MEDICARE ==
--- NOTE | 2019-01-30 12:22 | ERPHSYRPT ---
- History of Present Illness Time Seen by Provider: 01/30/19 12:10 Source: patient, EMS Exam Limitations: clinical condition Physician History: 83 y/o white male resident of [facility] presents with new onset right upper extremity weakness. pt has h/o dementia. typically, he is not confused with words and does not have right upper ext weakness. sx occurred this morning at breakfast. pt went to bed normal for him. pt states he had the weakness this am and he thinks his voice sounds different. pt denies head injury. pt took his meds this am including a baby asa. pt denies pain of any kind. pt has h/o tia and cva in past. pt has expressive aphasia(chronc) and does not ambulate. pt has cadz and pacemaker in place. Timing/Duration: today, other (woke up with sx. was noticed by staff at breakfast) Character of Deficits: new weakness, RUE Current Cognition: alert but confused Baseline Gait: unable to walk Associated Symptoms: weakness (rue), other (voice sounds different) Allergies/Adverse Reactions: No Known Drug Allergies Allergy (Unverified 08/02/15 10:53) Home Medications: Aspirin 325 mg PO HS 08/02/15 [History] Acetaminophen [Tylenol] 650 mg PO Q4H PRN PRN 01/02/19 [History] Atorvastatin Calcium [Lipitor] 40 mg PO DAILY 01/02/19 [History] Carvedilol 3.125 mg [Coreg 3.125 MG] 1 tab PO BID 01/02/19 [History] Pantoprazole Sodium [Protonix] 20 mg PO DAILY 01/02/19 [History] Tamsulosin HCl 1 cap PO DAILY 01/02/19 [History] Fexofenadine HCl 1 tab PO DAILY 01/30/19 [History] Nitroglycerin [Nitrostat] 1 tab SUBMUCOSAL Q5MIN PRN MR X 3 PRN 01/30/19 [ History] Hx Tetanus, Diphtheria Vaccination/Date Given: No Hx Influenza Vaccination/Date Given: Yes Hx Pneumococcal Vaccination/Date Given: Yes - Review of Systems Constitutional: Weakness (rue) Eyes: No Symptoms Ears, Nose, & Throat: No Symptoms Respiratory: No Symptoms Cardiac: No Symptoms Abdominal/Gastrointestinal: No Symptoms Genitourinary Symptoms: No Symptoms Skin: No Symptoms Neurological: Focal Weakness (rue), Speech Changes (per his report) Psychological: No Symptoms Hematologic/Lymphatic: No Symptoms Immunological/Allergic: No Symptoms All Other Systems: Reviewed and Negative - Past Medical History Pertinent Past Medical History: Yes Neurological History: Stroke, TIA ENT History: No Pertinent History Cardiac History: Arrhythmia, Coronary Artery Disease, High Cholesterol, Hypertension Respiratory History: No Pertinent History Endocrine Medical History: No Pertinent History Musculoskeletal History: No Pertinent History GI Medical History: Hernia, Other History: Other Psycho-Social History: No Pertinent History Male Reproductive Disorders: Prostate Problems Other Medical History: blood in stool. hx kidney stone and uti - Past Surgical History Past Surgical History: Yes Neuro Surgical History: No Pertinent History Cardiac: Cardiac Catheterization, Cardiac Stent, Pacemaker Respiratory: No Pertinent History Gastrointestinal: No Pertinent History Genitourinary: Other Musculoskeletal: No Pertinent History Male Surgical History: No Pertinent History Other Surgical History: KIDNEY STONES - Social History Smoking Status: Never smoker Exposure to second hand smoke: No Drug Use: none Patient Lives Alone: No - Nursing Vital Signs Nursing Vital Signs: Initial Vital Signs Temperature 98.0 F 01/30/19 12:14 Pulse Rate 65 01/30/19 12:14 Blood Pressure 182/98 01/30/19 12:14 O2 Sat by Pulse Oximetry 99 01/30/19 12:14 Pain Scale Pain Intensity 0 - [place] Coma Scale Best Eye Response ([place]): (4) open spontaneously Best Verbal Response ([place]): (5) oriented Best Motor Response ([place]): (6) obeys commands [place] Total: 15 - Physical Exam General Appearance: mild distress, alert, anxiety Eye Exam: bilateral eye: normal inspection, PERRL, EOMI Ears, Nose, Throat Exam: normal ENT inspection, moist mucous membranes Neck Exam: normal inspection, non-tender, supple, full range of motion Respiratory: normal breath sounds, lungs clear, airway intact, No chest tenderness, No respiratory distress Cardiovascular: regular rate/rhythm, normal heart sounds, normal peripheral pulses Gastrointestinal: soft, normal bowel sounds, No tenderness Rectal Exam: not done Extremity Exam: normal inspection, pelvis stable, limited range of motion ( right upper ext) 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 nearly dependent. 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 STAT Care 01/30/19 12:28 Active EKG-ER Only STAT Care 01/30/19 12:28 Active IV Insertion STAT Care 01/30/19 12:28 Active NPO (ED) STAT Care 01/30/19 12:28 Active Pulse Oximetry (ED) STAT Care 01/30/19 12:28 Active HEAD WITHOUT CONTRAST [CT] Stat Exams 01/30/19 12:12 Completed CBC W DIFF Stat Lab 01/30/19 12:42 Completed CMP Stat Lab 01/30/19 12:42 Completed PROTIME WITH INR Stat Lab 01/30/19 12:42 Completed Medication Summary Discontinued Medications Generic Name Dose Route Start Last Admin Trade Name Freq PRN Reason Stop Dose Admin Metoprolol Tartrate 2.5 mg 01/30/19 12:31 01/30/19 12:40 Lopressor 5 Mg/5 Ml Injection IV 01/30/19 12:32 2.5 mg STAT ONE Administration Metoprolol Tartrate Confirm 01/30/19 12:40 Lopressor 5 Mg/5 Ml Injection Administered 01/30/19 12:41 Dose 5 mg IV .[employer]-MED ONE Lab/Rad Data: Laboratory Result Diagrams 01/30/19 12:42 01/30/19 12:42 Laboratory Results 01/30/19 01/30/19 01/30/19 Range/Units 12:42 12:42 12:42 WBC 7.6 (4.0-10.5) K/mm3 RBC 4.62 (4.1-5.6) M/mm3 Hgb 11.9 L (12.5-18.0) gm/dl Hct 36.8 L (42-50) % MCV 79.7 (78-100) fl MCH 25.7 L (26-32) pg MCHC 32.3 (32-36) g/dl RDW 18.1 H (11.5-14.0) % Plt Count 277 (150-450) K/mm3 MPV 10.1 H (6-9.5) fl Gran % 64.1 (36.0-66.0) % Eos # (Auto) 0.23 (0-0.5) Absolute Lymphs (auto) 1.80 (1.0-4.6) Absolute Monos (auto) 0.68 (0.0-1.3) Lymphocytes % 23.7 L (24.0-44.0) % Monocytes % 8.9 (0.0-12.0) % Eosinophils % 3.0 (0.00-5.0) % Basophils % 0.3 (0.0-0.4) % Absolute Granulocytes 4.87 (1.4-6.9) Basophils # 0.02 (0-0.4) PT 13.0 H (8.83-12.87) SECONDS INR 1.15 (0.8-3.0) Sodium 143 (137-145) mmol/L Potassium 4.4 (3.5-5.1) mmol/L Chloride 105 (98-107) mmol/L Carbon Dioxide 28 (22-30) mmol/L Anion Gap 13.8 (5-15) MEQ/L BUN 21 H (9-20) mg/dL Creatinine 0.88 (0.66-1.25) mg/dL Estimated GFR > 60.0 ML/MIN Glucose 95 (74-106) mg/dL Calcium 8.8 (8.4-10.2) mg/dL Total Bilirubin 0.50 (0.2-1.3) mg/dL AST 24 (17-59) U/L ALT 11 (0-50) U/L Alkaline Phosphatase 97 (38-126) U/L Serum Total Protein 7.9 (6.3-8.2) g/dL Albumin 4.0 (3.5-5.0) g/dL - Progress Progress: unchanged Progress Note: 01/30/19 14:10 ct head-no acute intracranial abnormality. spoke with dr. bustos. i reviewed pt hx, condition, lab and ct results with him. he states to go ahead and discharge back to detention. Counseled pt/family regarding: lab results, diagnosis, rad results - Departure Departure Disposition: Extended Care Facility Clinical Impression: TIA (transient ischemic attack) Condition: Stable Critical Care Time: No Referrals: OZZY BRUMFIELD [Primary Care Provider] - Additional Instructions: continue same treatment plan. call dr. bustos for new orders.
[2019-01-30] MEDS ORDERED: LOPRESSOR 5 MG/5 ML INJECTION IV ONE ×2 (12:31→12:40)
[2019-01-30 12:39] VITALS: O2SAT 99
[2019-01-30 12:43] LABS: Absolute Neutrophil Ct (ANC) 4.87 (1.4-6.9); BASOPHIL % 0.3 % (0.0-0.4); Basophil (Absolute #) 0.02 (0-0.4); Eosinophil (Absolute #) 0.23 (0-0.5); Hematocrit 36.8 % (42-50); Hemoglobin 11.9 gm/dl (12.5-18.0); Lymphocytes % 23.7 % (24.0-44.0); Mean Cell Volume 79.7 fl (78-100); Mean Corpuscular Hgb Concent. 32.3 g/dl (32-36); Mean Platelet Volume 10.1 fl (6-9.5); Monocyte (Absolute #) 0.68 (0.0-1.3); Monocytes % 8.9 % (0.0-12.0); Neutrophil % 64.1 % (36.0-66.0); Platelet Count 277 K/mm3 (150-450); Red Blood Count 4.62 M/mm3 (4.1-5.6); Red Cell Distribution Width 18.1 % (11.5-14.0); White Blood Count 7.6 K/mm3 (4.0-10.5)
--- NOTE | 2019-01-30 12:44 | XRAY ---
Indication: Right arm weakness. Multiple contiguous axial images obtained through the head without contrast. Comparison: June 01, 2016. Interval maturation of previous right anterior parietal and right frontal lobe infarcts. Stable age-appropriate global atrophy, mild periventricular degenerative micro-ischemia bilaterally, and remote right basal ganglia lacunar infarct. No acute intracranial hemorrhage, hydrocephalus, or mass effect. Bony calvarium intact. New partial opacification of the right mastoid air cells presumed inflammatory. Remaining visualized paranasal sinuses and left mastoid air cells are clear. Impression: 1. No acute intracranial abnormalities. 2. Old right parietal and right frontal lobe infarcts. 3. Stable atrophy, degenerative micro-ischemia, and remote right basal ganglia lacunar infarct. 4. New partial opacification the right mastoid air cells presumed inflammatory. CT DI 68.65
[2019-01-30 12:48] LABS: Mean Corpuscular Hemoglobin 25.7 pg (26-32)
[2019-01-30 12:50] LABS: INR 1.15 (0.8-3.0)
[2019-01-30 12:55] LABS: ALKALINE PHOSPHATASE 97 U/L (38-126); ANION GAP 13.8 MEQ/L (5-15); BLOOD UREA NITROGEN 21 mg/dL (9-20); CHLORIDE 105 mmol/L (98-107); Calcium 8.8 mg/dL (8.4-10.2); Carbon Dioxide 28 mmol/L (22-30); Creatinine 1 0.88 mg/dL (0.66-1.25); Glucose 95 mg/dL (74-106); Potassium 4.4 mmol/L (3.5-5.1); SGOT/AST 24 U/L (17-59); SGPT/ALT 11 U/L (0-50); SODIUM 143 mmol/L (137-145); Total Protein 7.9 g/dL (6.3-8.2)
[2019-01-30 14:44] VITALS: BP 178/91; PULSE 67
== END 2019-01-30 15:13 | disposition home or self-care (01) ==
LOC: ED 12:07
DX: G45.9 Transient cerebral ischemic attack, unspecified (principal)
CPT/HCPCS: 36000; 36415; 70450; 80053; 85025; 85610; 93005; 93041; 94760; 96374; 99284

== ENCOUNTER 2019-02-02 15:22 | Observation (INO) | payer MEDICARE ==
[2019-02-02 17:18] LABS: Absolute Neutrophil Ct (ANC) 4.52 (1.4-6.9); BASOPHIL % 0.3 % (0.0-0.4); Basophil (Absolute #) 0.02 (0-0.4); Eosinophil % 3.3 % (0.00-5.0); Eosinophil (Absolute #) 0.26 (0-0.5); Hematocrit 34.5 % (42-50); Lymphocyte (Absolute #) 2.06 (1.0-4.6); Lymphocytes % 26.5 % (24.0-44.0); Mean Cell Volume 81.4 fl (78-100); Mean Corpuscular Hemoglobin 25.9 pg (26-32); Mean Corpuscular Hgb Concent. 31.9 g/dl (32-36); Mean Platelet Volume 10.3 fl (6-9.5); Monocyte (Absolute #) 0.91 (0.0-1.3); Monocytes % 11.7 % (0.0-12.0); Neutrophil % 58.2 % (36.0-66.0); Platelet Count 258 K/mm3 (150-450); Red Blood Count 4.24 M/mm3 (4.1-5.6); Red Cell Distribution Width 18.4 % (11.5-14.0); White Blood Count 7.8 K/mm3 (4.0-10.5)
[2019-02-02] MEDS ORDERED: MERREM 500MG IV ONE (17:39)
[2019-02-02] MEDS ORDERED: Sodium Chloride 0.9% 100 ML IVPB 100 ML IV ONE (17:40)
[2019-02-02] MEDS: DEXTROSE IV SCH (17:42)
[2019-02-02] MEDS: WATER IV SCH (17:42)
[2019-02-02] MEDS: MERREM IV SCH (17:42)
[2019-02-02] MEDS: Sodium Chloride 0.9% 10 ML FLUSH Syringe IV PRN (17:50)
[2019-02-02 17:55] LABS: ALBUMIN 3.8 g/dL (3.5-5.0); ALKALINE PHOSPHATASE 83 U/L (38-126); ANION GAP 12.4 MEQ/L (5-15); BLOOD UREA NITROGEN 28 mg/dL (9-20); CHLORIDE 107 mmol/L (98-107); Calcium 8.8 mg/dL (8.4-10.2); Carbon Dioxide 28 mmol/L (22-30); Creatinine 1 0.92 mg/dL (0.66-1.25); Glucose 102 mg/dL (74-106); Potassium 4.1 mmol/L (3.5-5.1); SGOT/AST 20 U/L (17-59); SGPT/ALT 12 U/L (0-50); SODIUM 143 mmol/L (137-145); Total Protein 7.4 g/dL (6.3-8.2)
[2019-02-02] MEDS ORDERED: TYLENOL 325 MG PO PRN (20:25)
[2019-02-02] MEDS ORDERED: Nitrostat 0.4 MG Tablet SL PRN (20:28)
[2019-02-02 21:15] LABS: Vitamin B12 392 pg/mL (239-931)
[2019-02-02 21:32] LABS: Appearance SLIGHTLY CLOUDY (CLEAR); Bilirubin NEGATIVE (NEGATIVE); Blood LARGE Ery/ul (0-5); Glucose NEGATIVE (NEGATIVE); Ketones NEGATIVE (NEGATIVE); Leukocyte Esterase MODERATE (NEGATIVE); Nitrite NEGATIVE (NEGATIVE); Protein,Urine Dip 100 (Negative); Specific Gravity 1.013 (1.005-1.025); Urobilinogen NEGATIVE mg/dL (0-1)
[2019-02-02 21:33] LABS: RBC >101 /HPF (0-2)
[2019-02-02] MEDS: Coreg 3.125 MG PO SCH (21:36)
[2019-02-02] MEDS: Ecotrin 325 MG PO SCH (21:36)
[2019-02-02] MEDS: Sodium Chloride 0.9% 10 ML FLUSH Syringe IV SCH (21:37)
[2019-02-02] MEDS: ZOCOR 20MG PO SCH (21:37)
[2019-02-03] MEDS: MERREM IV SCH ×3 (06:26→22:01)
[2019-02-03] MEDS: DEXTROSE IV SCH ×3 (06:26→22:01)
[2019-02-03] MEDS: WATER IV SCH ×3 (06:26→22:01)
[2019-02-03] MEDS: Sodium Chloride 0.9% 10 ML FLUSH Syringe IV SCH ×3 (06:27→22:02)
[2019-02-03] MEDS: Coreg 3.125 MG PO SCH ×2 (10:17→22:05)
--- NOTE | 2019-02-03 13:00 | PCM.NOTE ---
Date and Time: 02/03/19 1254 Subjective Assessment: Patient is a limited historian due to dementia. Patient denies any pain. He is concerned about his and wondering where she is. Patient had no reported complaints of pain or discomfort this am. Patient does report hx of kidney stone. - Review of Systems Constitutional: No Fever, No Weakness Eyes: No Vision Changes Ears, Nose, & Throat: No Nose Congestion Respiratory: No Cough, No Short Of Breath Cardiac: No Chest Pain, No Edema Abdominal/Gastrointestinal: No Abdominal Pain, No Nausea, No Vomiting, No Diarrhea, No Constipation Genitourinary Symptoms: Other (Patient has villalpando cath) Musculoskeletal: No Symptoms Skin: No Symptoms Neurological: No Headache Objective Exam General Appearance: mild distress Neurologic Exam: alert, other (Patient has dementia and appears mildly agitated and is perseverating about his not being in the room.), No oriented x 3 Skin Exam: normal color, warm, dry, No rash Eye Exam: eyes nml inspection, No scleral icterus Ears, Nose, Throat Exam: moist mucous membranes Neck Exam: normal inspection Respiratory Exam: normal breath sounds, lungs clear, No chest tenderness, No respiratory distress, No diminished breath sounds Cardiovascular Exam: regular rate/rhythm, normal heart sounds, No murmur Gastrointestinal/Abdomen Exam: soft, normal bowel sounds, No tenderness, No distention, No mass Back Exam: normal inspection, No CVA tenderness Male Genitalia Exam: other (Villalpando cath present) OBJECTIVE DATA Vital Signs: Vital Signs - 24 hr Temp Pulse Resp BP Pulse Ox 02/03/19 12:50 97.8 F 82 20 168/80 95 02/03/19 07:26 97.7 F 70 20 164/80 92 L 02/03/19 04:00 98.6 F 75 20 170/77 92 L 02/02/19 20:00 98.2 F 75 18 188/88 94 L 02/02/19 17:19 98.9 F 66 20 187/83 Oxygen-Last 24 hours Oxygen Flowrate (L/min)-RT 95 Pain Assessment - Last Documented Pain Intensity 0 Pain Scale Used 0-10 Pain Scale Intake and Output: Intake & Output 02/01/19 02/02/19 02/03/19 02/04/19 11:59 11:59 11:59 11:59 Intake Total 460 Output Total 900 Balance -440 Weight 74.6 kg Lab Results: Lab Results-Last 24 Hours 02/02/19 02/02/19 02/02/19 Range/Units 17:10 17:10 20:00 WBC 7.8 (4.0-10.5) K/mm3 RBC 4.24 (4.1-5.6) M/mm3 Hgb 11.0 L (12.5-18.0) gm/dl Hct 34.5 L (42-50) % MCV 81.4 (78-100) fl MCH 25.9 L (26-32) pg MCHC 31.9 L (32-36) g/dl RDW 18.4 H (11.5-14.0) % Plt Count 258 (150-450) K/mm3 MPV 10.3 H (6-9.5) fl Gran % 58.2 (36.0-66.0) % Eos # (Auto) 0.26 (0-0.5) Absolute Lymphs (auto) 2.06 (1.0-4.6) Absolute Monos (auto) 0.91 (0.0-1.3) Lymphocytes % 26.5 (24.0-44.0) % Monocytes % 11.7 (0.0-12.0) % Eosinophils % 3.3 (0.00-5.0) % Basophils % 0.3 (0.0-0.4) % Absolute Granulocytes 4.52 (1.4-6.9) Basophils # 0.02 (0-0.4) Sodium 143 (137-145) mmol/L Potassium 4.1 (3.5-5.1) mmol/L Chloride 107 (98-107) mmol/L Carbon Dioxide 28 (22-30) mmol/L Anion Gap 12.4 (5-15) MEQ/L BUN 28 H (9-20) mg/dL Creatinine 0.92 (0.66-1.25) mg/dL Estimated GFR > 60.0 ML/MIN Glucose 102 (74-106) mg/dL Calcium 8.8 (8.4-10.2) mg/dL Total Bilirubin 0.40 (0.2-1.3) mg/dL AST 20 (17-59) U/L ALT 12 (0-50) U/L Alkaline Phosphatase 83 (38-126) U/L Serum Total Protein 7.4 (6.3-8.2) g/dL Albumin 3.8 (3.5-5.0) g/dL Vitamin B12 392 (239-931) pg/mL TSH 3rd Generation 1.900 (0.47-4.68) mIU/L Urine Color YELLOW (YELLOW) Urine Appearance SLIGHTLY CLOUDY (CLEAR) Urine pH 7.0 (5-6) Ur Specific Hayden 1.013 (1.005-1.025) Urine Protein 100 (Negative) Urine Ketones NEGATIVE (NEGATIVE) Urine Blood LARGE (0-5) Johnnie/ul Urine Nitrite NEGATIVE (NEGATIVE) Urine Bilirubin NEGATIVE (NEGATIVE) Urine Urobilinogen NEGATIVE (0-1) mg/dL Ur Leukocyte Esterase MODERATE (NEGATIVE) Urine WBC (Auto) 3-5 (0-5) /HPF Urine RBC (Auto) >101 (0-2) /HPF U Epithel Cells (Auto) NONE (FEW) /HPF Urine Bacteria (Auto) NONE (NEGATIVE) /HPF Urine Culture Reflexed ORDERED SEPARATELY (NO) Urine Glucose NEGATIVE (NEGATIVE) mg/dL Assessment/Plan (1) UTI (urinary tract infection) Current Visit: Yes Status: Acute Assessment & Plan: Patient's culture grew pseudomonas in his urine. Patient was started on IV merrem. Will continue with the IV antibiotics. Will assess if villalpando cath is new or needs to be replaced. Code(s): N39.0 - URINARY TRACT INFECTION, SITE NOT SPECIFIED (2) Dementia Current Visit: Yes Status: Acute Assessment & Plan: Patient has hx of dementia. Unsure if this is patient's baseline. Patient is being treated for UTI and blood cultures still pending as potential cause of AMS. Code(s): F03.90 - UNSPECIFIED DEMENTIA WITHOUT BEHAVIORAL DISTURBANCE (3) Essential (primary) hypertension Current Visit: No Status: Acute Assessment & Plan: Patient has hx of HTN. BP this am was 170/77. Will resume home meds and if necessary will add additional PRN meds. Code(s): I10 - ESSENTIAL (PRIMARY) HYPERTENSION
[2019-02-03] MEDS: CLARITIN 10 MG PO SCH (14:50)
[2019-02-03] MEDS: Flomax 0.4 MG PO SCH (14:50)
[2019-02-03] MEDS: Protonix 20MG Tablet PO SCH (14:50)
[2019-02-03 14:57] LABS: Absolute Neutrophil Ct (ANC) 5.66 (1.4-6.9); BASOPHIL % 0.2 % (0.0-0.4); Basophil (Absolute #) 0.02 (0-0.4); Eosinophil % 1.6 % (0.00-5.0); Eosinophil (Absolute #) 0.13 (0-0.5); Hematocrit 34.5 % (42-50); Lymphocyte (Absolute #) 1.34 (1.0-4.6); Lymphocytes % 16.7 % (24.0-44.0); Mean Cell Volume 81.2 fl (78-100); Mean Corpuscular Hemoglobin 25.8 pg (26-32); Mean Corpuscular Hgb Concent. 31.9 g/dl (32-36); Monocyte (Absolute #) 0.88 (0.0-1.3); Neutrophil % 70.5 % (36.0-66.0); Platelet Count 242 K/mm3 (150-450); Red Blood Count 4.25 M/mm3 (4.1-5.6)
[2019-02-03 15:24] LABS: ANION GAP 12.7 MEQ/L (5-15); BLOOD UREA NITROGEN 21 mg/dL (9-20); CHLORIDE 105 mmol/L (98-107); Calcium 8.5 mg/dL (8.4-10.2); Carbon Dioxide 29 mmol/L (22-30); Creatinine 1 0.81 mg/dL (0.66-1.25); Glucose 112 mg/dL (74-106); Potassium 3.9 mmol/L (3.5-5.1); SODIUM 142 mmol/L (137-145)
[2019-02-03] MEDS: Ativan 0.5 MG PO PRN (16:48)
[2019-02-03] MEDS: ZOCOR 20MG PO SCH (22:05)
[2019-02-03] MEDS: Ecotrin 325 MG PO SCH (22:05)
[2019-02-04] MEDS: WATER IV SCH ×3 (05:04→21:47)
[2019-02-04] MEDS: DEXTROSE IV SCH ×3 (05:04→21:47)
[2019-02-04] MEDS: Sodium Chloride 0.9% 10 ML FLUSH Syringe IV SCH ×3 (05:04→21:54)
[2019-02-04] MEDS: MERREM IV SCH ×3 (05:04→21:47)
--- NOTE | 2019-02-04 09:22 | PCM.NOTE ---
Date and Time: 02/04/19915 Subjective Assessment: 83 yr old male seen and examined this am. Patient is limited historian. No complaints of pain or any other reported concerns this am. Patient is not oriented to place or time. - Review of Systems Constitutional: Other (Limited ROS due to dementia but denies any headaches or pain. ) Objective Exam General Appearance: no apparent distress Neurologic Exam: alert, cooperative, No oriented x 3 Skin Exam: normal color, warm, dry Eye Exam: eyes nml inspection, No scleral icterus Ears, Nose, Throat Exam: moist mucous membranes, other Neck Exam: normal inspection Respiratory Exam: wheezing, No respiratory distress, No diminished breath sounds Cardiovascular Exam: regular rate/rhythm, normal heart sounds, No edema Gastrointestinal/Abdomen Exam: soft, normal bowel sounds, No tenderness, No distention, No guarding Extremity Exam: other (Decreased muscle mass on lower extremities) OBJECTIVE DATA Vital Signs: Vital Signs - 24 hr Temp Pulse Resp BP Pulse Ox 02/04/19 07:25 97.8 F 76 18 146/80 95 02/04/19 04:00 98.2 F 72 19 162/73 95 02/03/19 23:47 98.2 F 72 20 138/61 93 L 02/03/19 20:00 98.1 F 77 16 118/55 94 L 02/03/19 16:38 97.6 F 87 20 170/78 96 02/03/19 12:50 97.8 F 82 20 168/80 95 Pain Assessment - Last Documented Pain Intensity 0 Pain Scale Used FLACC Intake and Output: Intake & Output 02/01/19 02/02/19 02/03/19 02/04/19 11:59 11:59 11:59 11:59 Intake Total 460 1040 Output Total 900 1700 Balance -440 -660 Weight 74.6 kg Lab Results: Lab Results-Last 24 Hours 02/03/19 02/03/19 Range/Units 14:45 14:45 WBC 8.0 (4.0-10.5) K/mm3 RBC 4.25 (4.1-5.6) M/mm3 Hgb 11.0 L (12.5-18.0) gm/dl Hct 34.5 L (42-50) % MCV 81.2 (78-100) fl MCH 25.8 L (26-32) pg MCHC 31.9 L (32-36) g/dl RDW 18.0 H (11.5-14.0) % Plt Count 242 (150-450) K/mm3 MPV 10.0 H (6-9.5) fl Gran % 70.5 H (36.0-66.0) % Eos # (Auto) 0.13 (0-0.5) Absolute Lymphs (auto) 1.34 (1.0-4.6) Absolute Monos (auto) 0.88 (0.0-1.3) Lymphocytes % 16.7 L (24.0-44.0) % Monocytes % 11.0 (0.0-12.0) % Eosinophils % 1.6 (0.00-5.0) % Basophils % 0.2 (0.0-0.4) % Absolute Granulocytes 5.66 (1.4-6.9) Basophils # 0.02 (0-0.4) Sodium 142 (137-145) mmol/L Potassium 3.9 (3.5-5.1) mmol/L Chloride 105 (98-107) mmol/L Carbon Dioxide 29 (22-30) mmol/L Anion Gap 12.7 (5-15) MEQ/L BUN 21 H (9-20) mg/dL Creatinine 0.81 (0.66-1.25) mg/dL Estimated GFR > 60.0 ML/MIN Glucose 112 H (74-106) mg/dL Calcium 8.5 (8.4-10.2) mg/dL Assessment/Plan (1) UTI (urinary tract infection) Current Visit: Yes Status: Acute Assessment & Plan: Patient will continue on IV antibiotics. Patient has remained afebrile and has no complaints of pain. Will consider discharge today or tomorrow back to care facility. Code(s): N39.0 - URINARY TRACT INFECTION, SITE NOT SPECIFIED (2) Dementia Current Visit: Yes Status: Acute Assessment & Plan: Patient is not oriented to place or time. Will continue to monitor for any signs of acute delirium Code(s): F03.90 - UNSPECIFIED DEMENTIA WITHOUT BEHAVIORAL DISTURBANCE (3) Essential (primary) hypertension Current Visit: No Status: Acute Assessment & Plan: Will continue with routine bp meds. Will continue to monitor VS. BP has been elevated in hospital. Patient may need adjustment to his current bp meds. Code(s): I10 - ESSENTIAL (PRIMARY) HYPERTENSION
[2019-02-04] MEDS ORDERED: NON-FORMULARY ITEM (Fexofenadine Hcl [Allegra] 180 MG) PO SCH (10:00)
[2019-02-04] MEDS: Flomax 0.4 MG PO SCH (10:38)
[2019-02-04] MEDS: Protonix 20MG Tablet PO SCH (10:38)
[2019-02-04] MEDS: CLARITIN 10 MG PO SCH (10:38)
[2019-02-04] MEDS: Coreg 3.125 MG PO SCH ×2 (10:41→21:47)
--- NOTE | 2019-02-04 19:52 | XRAY ---
Indication: Wheezing. Comparison: November 16, 2017. Portable chest remains clear again with a few incidental tiny calcified granulomas. Heart is not enlarged again with left dual lead pacemaker. Bony thorax intact again with mild osteopenia and degenerative changes. Impression: Stable nonacute chest with chronic features. Comment: Preliminary interpretation was made by [facility]. No discrepancy.
[2019-02-04] MEDS: Ecotrin 325 MG PO SCH (21:46)
[2019-02-04] MEDS: ZOCOR 20MG PO SCH (21:46)
[2019-02-05] MEDS: MERREM IV SCH ×3 (06:07→21:47)
[2019-02-05] MEDS: DEXTROSE IV SCH ×3 (06:07→21:47)
[2019-02-05] MEDS: WATER IV SCH ×3 (06:07→21:47)
[2019-02-05] MEDS: Sodium Chloride 0.9% 10 ML FLUSH Syringe IV SCH ×3 (06:08→21:48)
--- NOTE | 2019-02-05 10:03 | PCM.NOTE ---
Date and Time: 02/05/19957 Subjective Assessment: Patient is seen and examined today ,nurse Pamela is present . Patient is asking about where is his . I called the home number and she answered and patient was delighted to try to speak with her but did not carry on a conversation and handed the phone back to me. He is asking when he can go home. He is picking at his IV tape and understands that is there to help him get better.He has not tried to pull the Iv line out. Staff reports that he is eating and drinking thickened liquids ok. No C/O pain just asking to go home. 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) Skin Exam: normal color, warm, dry Respiratory Exam: normal breath sounds Cardiovascular Exam: regular rate/rhythm Gastrointestinal/Abdomen Exam: soft, normal bowel sounds (nontender) Back Exam: other (no CVA tenderness) OBJECTIVE DATA Vital Signs: Vital Signs - 24 hr Temp Pulse Resp BP Pulse Ox 02/05/19 07:16 97.6 F 80 18 155/70 95 02/05/19 04:00 98.1 F 59 L 20 183/86 94 L 02/05/19 00:00 98.2 F 72 18 151/70 94 L 02/04/19 20:00 98.6 F 70 18 166/76 92 L 02/04/19 16:01 97.6 F 87 18 140/68 95 02/04/19 10:59 97.8 F 70 20 134/70 95 Pain Assessment - Last Documented Pain Intensity 0 Pain Scale Used [facility] Intake and Output: Intake & Output 02/02/19 02/03/19 02/04/19 02/05/19 11:59 11:59 11:59 11:59 Intake Total 460 1040 1632 Output Total 900 1700 1400 Balance -440 -660 232 Weight 74.6 kg Radiology Exams: Radiology Procedures Category Date Time Status CHEST 1 VIEW (PORTABLE) Urgent Exams 02/04/19 09:39 Completed Assessment/Plan (1) Pseudomonas urinary tract infection Current Visit: Yes Status: Acute Assessment & Plan: Blood cultures were negative x 2 so no Urosepsis. IV Meds per culture until discharge. Started Macrobid due to 2nd bacteria and probable colonization. Code(s): N39.0 - URINARY TRACT INFECTION, SITE NOT SPECIFIED; B96.5 - PSEUDOMONAS (MALLEI) CAUSING DISEASES CLASSD ELSWHR (2) Dementia Current Visit: Yes Status: Acute Qualifiers: Dementia type: unspecified type Dementia behavioral disturbance: without behavioral disturbance Qualified Code(s): F03.90 - Unspecified dementia without behavioral disturbance Assessment & Plan: wants patient to come home in stead of the [facility] upon discharege and she will arrange a daily caregiver to get him in and out of bed. HH or Hospice to be discussed.In light of recent CVA - Hospice is reasonable if PCP can manage meds. Code(s): F03.90 - UNSPECIFIED DEMENTIA WITHOUT BEHAVIORAL DISTURBANCE (3) Recent cerebrovascular accident (CVA) Current Visit: Yes Status: Acute Code(s): Z86.73 - PRSNL HX OF TIA (TIA), AND CEREB INFRC W/O RESID DEFICITS (4) Essential (primary) hypertension Current Visit: Yes Status: Acute Assessment & Plan: added Lisinopril to hold if B/P < 110/65. Code(s): I10 - ESSENTIAL (PRIMARY) HYPERTENSION
[2019-02-05] MEDS: Coreg 3.125 MG PO SCH ×2 (10:19→21:48)
[2019-02-05] MEDS: Protonix 20MG Tablet PO SCH (10:19)
[2019-02-05] MEDS: CLARITIN 10 MG PO SCH (10:19)
[2019-02-05] MEDS: Flomax 0.4 MG PO SCH (10:19)
[2019-02-05] MEDS: Zestril 10 MG PO SCH (11:32)
[2019-02-05 13:26] LABS: Appearance CLOUDY (CLEAR); Bacteria MODERATE /HPF (NEGATIVE); Bilirubin NEGATIVE (NEGATIVE); Blood LARGE Ery/ul (0-5); Glucose NEGATIVE (NEGATIVE); Ketones NEGATIVE (NEGATIVE); Leukocyte Esterase MODERATE (NEGATIVE); Mucus MANY /HPF (NEGATIVE); Nitrite NEGATIVE (NEGATIVE); Protein,Urine Dip 100 (Negative); Specific Gravity 1.021 (1.005-1.025); Urobilinogen NEGATIVE mg/dL (0-1); WBC >100 /HPF (0-5)
[2019-02-05 13:27] LABS: RBC >101 /HPF (0-2)
[2019-02-05] MEDS ORDERED: PHARMACY DOSING REQUEST MC ONE (14:04)
[2019-02-05] MEDS ORDERED: Macrobid 100MG Capsule PO ONE (17:53)
[2019-02-05] MEDS: Ecotrin 325 MG PO SCH (21:48)
[2019-02-05] MEDS: ZOCOR 20MG PO SCH (21:48)
[2019-02-05] MEDS: Ativan 0.5 MG PO PRN (22:44)
[2019-02-05] MEDS: Sodium Chloride 0.9% 10 ML FLUSH Syringe IV PRN (22:45)
[2019-02-06] MEDS ORDERED: Ativan 0.5 MG PO ONE (00:28)
[2019-02-06] MEDS: WATER IV SCH ×3 (05:39→22:01)
[2019-02-06] MEDS: DEXTROSE IV SCH ×3 (05:39→22:01)
[2019-02-06] MEDS: MERREM IV SCH ×3 (05:39→22:01)
[2019-02-06] MEDS: Sodium Chloride 0.9% 10 ML FLUSH Syringe IV SCH ×3 (05:40→22:04)
[2019-02-06] MEDS: Macrobid 100MG Capsule PO SCH ×2 (07:54→16:53)
[2019-02-06] MEDS: Flomax 0.4 MG PO SCH (10:11)
[2019-02-06] MEDS: Coreg 3.125 MG PO SCH ×2 (10:11→22:04)
[2019-02-06] MEDS: Protonix 20MG Tablet PO SCH (10:11)
[2019-02-06] MEDS: CLARITIN 10 MG PO SCH (10:11)
[2019-02-06] MEDS: Zestril 10 MG PO SCH (11:11)
[2019-02-06] MEDS: Ativan 0.5 MG PO PRN (22:04)
[2019-02-06] MEDS: Ecotrin 325 MG PO SCH (22:04)
[2019-02-06] MEDS: ZOCOR 20MG PO SCH (22:04)
[2019-02-06] MEDS: Sodium Chloride 0.9% W/ 20 mEq KCl/LITER 1,000 ML IV SCH (22:47)
--- NOTE | 2019-02-06 22:52 | PCM.NOTE ---
Date and Time: 02/06/192239 Subjective Assessment: Patient and his are hopeful that he can go home rather than the [facility]. Hospice nurse will be evaluating the situation at home. Patient's brother in law brought patient's ,Chantal, in today to discuss with myself and discharge planning the best options for [place]. There will need to be a hired trained person to get patient up in the morning and get him back to bed and someone nutritionists for unexpected needs and this was explained to Chantal.She is angry and not able to have a conversation that leads to decision making -she is showing us articles she clipped and brought with her that explain her frustrations. Chantal wants papers from Hospice for her collections attorney to read re the terms of patient 's care under Hospice. Objective Exam General Appearance: alert (oriented to person), other (patient is feeding himself yakut fries and was able to drink from his glass of thickened tea and set it down using his left hand. Right arm hanging down.) Neurologic Exam: cooperative (pleasant mood) Skin Exam: normal color, warm, dry Respiratory Exam: other (no cough or dyspnea,decreased BS right base) Cardiovascular Exam: regular rate/rhythm, other (no edema) Gastrointestinal/Abdomen Exam: soft (nontender), other OBJECTIVE DATA Vital Signs: Vital Signs - 24 hr Temp Pulse Resp BP Pulse Ox 02/06/19 19:39 100.1 F 79 18 152/66 94 L 02/06/19 16:33 97.9 F 76 18 128/68 94 L 02/06/19 12:23 97.8 F 86 20 142/86 94 L 02/06/19 07:23 97.8 F 78 20 128/76 96 02/06/19 04:55 97.2 F 68 24 112/68 94 L 02/06/19 01:00 99 F 71 20 169/78 93 L Pain Assessment - Last Documented Pain Intensity 0 Pain Scale Used [facility] Intake and Output: Intake & Output 02/04/19 02/05/19 02/06/19 02/07/19 11:59 11:59 11:59 11:59 Intake Total 1040 1632 1620 780 Output Total 1700 1400 1500 950 Balance -660 232 120 -170 Multi-Disciplinary Progress Notes: Multi-Disciplinary Progress Notes 02/06/19 08:40 (created 02/06/19 11:05) Case Management Note by Kaylen Fabian REFERRAL TO [facility] PER MD ORDER. Initialized on 02/06/19 11:05 - END OF NOTE Assessment/Plan (1) Pseudomonas urinary tract infection Current Visit: Yes Status: Acute Assessment & Plan: repeat culture has no growth at 24 hours but UA shows 100 WBCs and RBCs catheter was changed upon admission per nursing. Code(s): N39.0 - URINARY TRACT INFECTION, SITE NOT SPECIFIED; B96.5 - PSEUDOMONAS (MALLEI) CAUSING DISEASES CLASSD ELSWHR (2) Dementia Current Visit: Yes Status: Chronic Qualifiers: Dementia type: unspecified type Dementia behavioral disturbance: without behavioral disturbance Qualified Code(s): F03.90 - Unspecified dementia without behavioral disturbance Code(s): F03.90 - UNSPECIFIED DEMENTIA WITHOUT BEHAVIORAL DISTURBANCE (3) Recent cerebrovascular accident (CVA) Current Visit: Yes Status: Acute Onset Date: ~01/28/19 Assessment & Plan: RUE weakness and worsening of dementia,less able to communicate,difficulty finding words. Code(s): Z86.73 - PRSNL HX OF TIA (TIA), AND CEREB INFRC W/O RESID DEFICITS (4) Essential (primary) hypertension Current Visit: Yes Status: Acute Code(s): I10 - ESSENTIAL (PRIMARY) HYPERTENSION
[2019-02-06] MEDS: PROVENTIL 2.5 MG/3 ML NEB IH SCH (23:08)
[2019-02-07 05:00] LABS: Absolute Neutrophil Ct (ANC) 3.84 (1.4-6.9); BASOPHIL % 0.3 % (0.0-0.4); Basophil (Absolute #) 0.02 (0-0.4); Eosinophil % 6.2 % (0.00-5.0); Eosinophil (Absolute #) 0.43 (0-0.5); Hematocrit 33.7 % (42-50); Hemoglobin 10.9 gm/dl (12.5-18.0); Lymphocytes % 26.1 % (24.0-44.0); Mean Cell Volume 81.6 fl (78-100); Mean Corpuscular Hemoglobin 26.3 pg (26-32); Mean Corpuscular Hgb Concent. 32.3 g/dl (32-36); Mean Platelet Volume 10.5 fl (6-9.5); Monocyte (Absolute #) 0.81 (0.0-1.3); Monocytes % 11.7 % (0.0-12.0); Neutrophil % 55.7 % (36.0-66.0); Platelet Count 242 K/mm3 (150-450); Red Blood Count 4.13 M/mm3 (4.1-5.6); Red Cell Distribution Width 17.9 % (11.5-14.0); White Blood Count 6.9 K/mm3 (4.0-10.5)
[2019-02-07] MEDS: Sodium Chloride 0.9% 10 ML FLUSH Syringe IV SCH ×3 (05:04→21:31)
[2019-02-07] MEDS: DEXTROSE IV SCH ×3 (05:04→21:31)
[2019-02-07] MEDS: WATER IV SCH ×3 (05:04→21:31)
[2019-02-07] MEDS: MERREM IV SCH ×3 (05:04→21:31)
[2019-02-07 05:07] LABS: ALKALINE PHOSPHATASE 71 U/L (38-126); ANION GAP 9.7 MEQ/L (5-15); BLOOD UREA NITROGEN 21 mg/dL (9-20); CHLORIDE 110 mmol/L (98-107); Calcium 8.3 mg/dL (8.4-10.2); Carbon Dioxide 29 mmol/L (22-30); Creatinine 1 0.81 mg/dL (0.66-1.25); Glucose 92 mg/dL (74-106); Potassium 3.9 mmol/L (3.5-5.1); SGOT/AST 18 U/L (17-59); SGPT/ALT 10 U/L (0-50); SODIUM 145 mmol/L (137-145); Total Protein 6.3 g/dL (6.3-8.2)
[2019-02-07] MEDS: Macrobid 100MG Capsule PO SCH ×2 (08:04→17:03)
[2019-02-07] MEDS: PROVENTIL 2.5 MG/3 ML NEB IH SCH ×4 (08:06→20:02)
[2019-02-07] MEDS: Sodium Chloride 0.9% W/ 20 mEq KCl/LITER 1,000 ML IV SCH (08:28)
[2019-02-07] MEDS: ENOXAPARIN SODIUM SQ SCH (09:37)
[2019-02-07] MEDS: Protonix 20MG Tablet PO SCH (09:37)
[2019-02-07] MEDS: CLARITIN 10 MG PO SCH (09:37)
[2019-02-07] MEDS: Flomax 0.4 MG PO SCH (09:37)
[2019-02-07] MEDS: Coreg 3.125 MG PO SCH ×2 (09:37→21:31)
[2019-02-07] MEDS: Zestril 10 MG PO SCH (11:39)
--- NOTE | 2019-02-07 12:42 | PCM.NOTE ---
Date and Time: 02/07/19 1237 Subjective Assessment: Patient is up in chair feeding himself. We talked about how arrangements were being made to help him go home to his residence that is dependant on Hospice accepting Home coverage. He teared up and said that he wanted to help and he did not know how.He wants to go home. I tried explaining that before he could be discharged home,he will have to have caregivers available to get him out of bed and to put him back to bed and that Chantal() will have to be willing to let the caregivers in their home. She is not able to lift him. She scolded me on the previous visit that he did not go home months ago when he was "able to be at home".(I am a new provider to this patient) I am not sure if Robert understood that there is no room for his hospital bed at home because of boxes covering the floors. Hospice is going back to the residence to see about moving the boxes to make room for the bed. The says the bed could go on the porch. The porch is not adequately heated per Hospice. Objective Exam Neurologic Exam: alert (oriented to person. Speech and word searching has improved since admission.Weakness remains RUE.), cooperative Ears, Nose, Throat Exam: normal ENT inspection, pharynx normal, moist mucous membranes Neck Exam: normal inspection, non-tender, supple, full range of motion Respiratory Exam: normal breath sounds, lungs clear, No respiratory distress Cardiovascular Exam: regular rate/rhythm Gastrointestinal/Abdomen Exam: soft (nontender) Extremity Exam: other (no edema) OBJECTIVE DATA Vital Signs: Vital Signs - 24 hr Temp Pulse Resp BP Pulse Ox 02/07/19 12:00 97.8 F 67 18 135/65 96 02/07/19 08:06 76 12 96 02/07/19 07:48 97.9 F 69 18 140/65 95 02/07/19 04:09 98.8 F 76 17 120/66 94 L 02/06/19 23:46 99.4 F 73 18 150/70 93 L 02/06/19 23:09 73 18 93 L 02/06/19 19:39 100.1 F 79 18 152/66 94 L 02/06/19 16:33 97.9 F 76 18 128/68 94 L Pain Assessment - Last Documented Pain Intensity 0 Pain Scale Used FLACC Intake and Output: Intake & Output 02/05/19 02/06/19 02/07/19 02/08/19 11:59 11:59 11:59 11:59 Intake Total 1632 1620 1902 Output Total 1400 1500 1400 Balance 232 120 502 Lab Results: Lab Results-Last 24 Hours 02/07/19 02/07/19 Range/Units 04:55 04:55 WBC 6.9 (4.0-10.5) K/mm3 RBC 4.13 (4.1-5.6) M/mm3 Hgb 10.9 L (12.5-18.0) gm/dl Hct 33.7 L (42-50) % MCV 81.6 (78-100) fl MCH 26.3 (26-32) pg MCHC 32.3 (32-36) g/dl RDW 17.9 H (11.5-14.0) % Plt Count 242 (150-450) K/mm3 MPV 10.5 H (6-9.5) fl Gran % 55.7 (36.0-66.0) % Eos # (Auto) 0.43 (0-0.5) Absolute Lymphs (auto) 1.80 (1.0-4.6) Absolute Monos (auto) 0.81 (0.0-1.3) Lymphocytes % 26.1 (24.0-44.0) % Monocytes % 11.7 (0.0-12.0) % Eosinophils % 6.2 H (0.00-5.0) % Basophils % 0.3 (0.0-0.4) % Absolute Granulocytes 3.84 (1.4-6.9) Basophils # 0.02 (0-0.4) Sodium 145 (137-145) mmol/L Potassium 3.9 (3.5-5.1) mmol/L Chloride 110 H (98-107) mmol/L Carbon Dioxide 29 (22-30) mmol/L Anion Gap 9.7 (5-15) MEQ/L BUN 21 H (9-20) mg/dL Creatinine 0.81 (0.66-1.25) mg/dL Estimated GFR > 60.0 ML/MIN Glucose 92 (74-106) mg/dL Calcium 8.3 L (8.4-10.2) mg/dL Total Bilirubin 0.60 (0.2-1.3) mg/dL AST 18 (17-59) U/L ALT 10 (0-50) U/L Alkaline Phosphatase 71 (38-126) U/L Serum Total Protein 6.3 (6.3-8.2) g/dL Albumin 3.0 L (3.5-5.0) g/dL Assessment/Plan (1) Pseudomonas urinary tract infection Status: Acute Assessment & Plan: treated per C&S ,reculture ,reacess- new bacteria present both suscetable to Macrobid-concern re colinization ,will be referred to Urologist for future management. Code(s): N39.0 - URINARY TRACT INFECTION, SITE NOT SPECIFIED; B96.5 - PSEUDOMONAS (MALLEI) CAUSING DISEASES CLASSD ELSWHR (2) Dementia Status: Chronic Qualifiers: Dementia type: unspecified type Dementia behavioral disturbance: without behavioral disturbance Qualified Code(s): F03.90 - Unspecified dementia without behavioral disturbance Code(s): F03.90 - UNSPECIFIED DEMENTIA WITHOUT BEHAVIORAL DISTURBANCE (3) Recent cerebrovascular accident (CVA) Status: Acute Onset Date: ~01/28/19 Assessment & Plan: improved speech and ability to converse,right sided weakness RUE continues. Code(s): Z86.73 - PRSNL HX OF TIA (TIA), AND CEREB INFRC W/O RESID DEFICITS (4) Essential (primary) hypertension Status: Chronic Assessment & Plan: added Lisinopril Code(s): I10 - ESSENTIAL (PRIMARY) HYPERTENSION
[2019-02-07] MEDS: Tums EX 750 MG PO SCH ×2 (13:59→21:32)
[2019-02-07] MEDS: Ecotrin 325 MG PO SCH (21:31)
[2019-02-07] MEDS: Ativan 0.5 MG PO PRN (21:31)
[2019-02-07] MEDS: ZOCOR 20MG PO SCH (21:31)
[2019-02-08] MEDS: WATER IV SCH (06:24)
[2019-02-08] MEDS: DEXTROSE IV SCH (06:24)
[2019-02-08] MEDS: MERREM IV SCH (06:24)
[2019-02-08] MEDS: Sodium Chloride 0.9% 10 ML FLUSH Syringe IV SCH (06:32)
[2019-02-08] MEDS: PROVENTIL 2.5 MG/3 ML NEB IH SCH (06:55)
[2019-02-08] MEDS: Macrobid 100MG Capsule PO SCH (07:56)
[2019-02-08] MEDS: ENOXAPARIN SODIUM SQ SCH (09:24)
[2019-02-08] MEDS: Coreg 3.125 MG PO SCH (09:25)
[2019-02-08] MEDS: Protonix 20MG Tablet PO SCH (09:25)
[2019-02-08] MEDS: Tums EX 750 MG PO SCH (09:25)
[2019-02-08] MEDS: Flomax 0.4 MG PO SCH (09:25)
[2019-02-08] MEDS: CLARITIN 10 MG PO SCH (09:25)
[2019-02-08] MEDS: Zestril 10 MG PO SCH (12:06)
[2019-02-08 12:13] VITALS: BP 121/58; PULSE 70; O2SAT 94
== END 2019-02-08 13:30 ==
LOC: MED SURG 16:42
PROVIDERS: ADMIT Family Medicine; ATTEND Family Medicine
DX: N39.0 Urinary tract infection, site not specified (principal); B96.5 Pseudomonas (aeruginosa) (mallei) (pseudomallei) as the cause of diseases classified elsewhere; F03.90 Unspecified dementia, unspecified severity, without behavioral disturbance, psychotic disturbance, mood disturbance, and anxiety; R06.2 Wheezing; R13.10 Dysphagia, unspecified; R26.2 Difficulty in walking, not elsewhere classified; I10 Essential (primary) hypertension; Z86.73 Personal history of transient ischemic attack (TIA), and cerebral infarction without residual deficits
CPT/HCPCS: 36415; 71045; 80048; 80053; 81001; 82607; 84443; 85025; 87040; 87077; 87086; 87186; 94640; 94760; 97110; 97161; 97530; G0378; J1650; J7609; A9270-GY